=== PATIENT | female | born 1965 | race Two or more races ===

== ENCOUNTER 2016-09-03 18:50 | Emergency (ER) | payer BC ==
[~2016-09-03] VITALS: Ht 134.6 cm; Wt 62.1 kg
[2016-09-03 18:54] VITALS: BP 114/75
[2016-09-03] MEDS ORDERED: CYCLOBENZAPRINE HCL 10 MG TAB PO ONE (20:00)
[2016-09-03] MEDS ORDERED: IBUPROFEN 600 MG TAB PO ONE (20:00)
== END 2016-09-03 20:31 | disposition home or self-care (01) ==
LOC: ER 18:54
DX: S39.012A Strain of muscle, fascia and tendon of lower back, initial encounter (principal); V49.9XXA Car occupant (driver) (passenger) injured in unspecified traffic accident, initial encounter; Y93.89 Activity, other specified; Y99.8 Other external cause status; Y92.89 Other specified places as the place of occurrence of the external cause

== ENCOUNTER → 2020-09-14 | Outpatient (CLI) | payer BC | END | disposition home or self-care (01) | LOC: LAB 09:59 | PROVIDERS: ATTEND Nurse Practitioner Family | DX: Z20.822 Contact with and (suspected) exposure to COVID-19 (principal) | CPT/HCPCS: C9803; U0003 ==